=== PATIENT | female | born 1995 | race Hispanic/Latino ===

== ENCOUNTER 2021-05-19 00:02 | Inpatient (IN) | payer OTHER ==
[~2021-05-19] VITALS: Ht 165.1 cm; Wt 101.2 kg
--- NOTE | 2021-05-19 12:30 | PR ---
[facility] [address] [facility] [place], [place] [address] Signed Progress Notes IP Datetime Report Generated by CPN: 05/19/2021 12:30 PROGRESS NOTES: [id number] Impression: Normal Progression of Labor; Reassuring Heart Rate Procedures: Artificial ROM; Sterile Vag Exam Plan: Continue Present Management VITAL SIGNS: [id number] Vital Signs: Reviewed; Within Normal Limits EXAM: [id number] Dilatation: 1.5 Effacement: 50 Station: -2 Contractions: q 1 to 3 min MEMBRANES: [id number] ROM Note: by Yobany FAJARDO Comments: Good change in her cervix with the Cytotec. Sugars are remaining in a good range as well. Will continue. FETUS A: [id number] FHR Baseline: 145 Variability: Moderate 6-25bpm Accelerations: 15X15 Decelerations: Variable FHR Category: Category II Presentation: Vertex Comments on Fetus A: overall reassuring FETUS B: [id number] Signing Physician: Ivet Haywood MD Copies: ~ *Electronically Signed* 05/19/21 1230 IVET HAYWOOD MD PATIENT NAME: ELMA MCGINNIS PROGRESS NOTE DATE OF : [birth year] PHYSICIAN: IVET HAYWOOD MD RPT #: [id number] REPORT IS CONFIDENTIAL AND NOT TO BE RELEASED WITHOUT AUTHORIZATION
--- NOTE | 2021-05-19 21:09 | PR ---
[facility] [address] [facility] [place], [place] [address] Signed Progress Notes IP Datetime Report Generated by CPN: 05/19/2021 21:09 PROGRESS NOTES: [id number] Impression: Reassuring Heart Rate Other Impressions: slow progress Procedures: Intrauterine Pressure Catheter; Scalp Electrode Plan: Augmentation VITAL SIGNS: [id number] Vital Signs: Reviewed; Within Normal Limits EXAM: [id number] Dilatation: 4.5 Effacement: 75 Station: -2 Contractions: q 1 to 3 min MEMBRANES: [id number] ROM Note: by Yobany FAJARDO Comments: Slow progress and I suspect contractions are inadequate. IUPC placed which did document this. Will begin low dose pitocin. Discussed with pt and she is agreeable to this plan. FETUS A: [id number] FHR Baseline: 145 Variability: Moderate 6-25bpm Accelerations: 15X15 Decelerations: Variable FHR Category: Category II Presentation: Vertex Comments on Fetus A: overall reassuring FETUS B: [id number] Signing Physician: Ivet Haywood MD Copies: ~ *Electronically Signed* 05/19/212108 IVET HAYWOOD MD PATIENT NAME: ELMA MCGINNIS PROGRESS NOTE DATE OF : [birth year] PHYSICIAN: IVET HAYWOOD MD RPT #: [id number] REPORT IS CONFIDENTIAL AND NOT TO BE RELEASED WITHOUT AUTHORIZATION
--- NOTE | 2021-05-21 10:52 | PR ---
[facility] [address] [facility] [facility] [place], [place] [address] Signed PP Progress Notes Datetime Report Generated by CPN: 05/21/2021 10:52 SUBJECTIVE: [id number] Pain: Within Normal Limits Nausea/Vomiting: Denies Vital Signs: [id number] Vital Signs: Reviewed; Within Normal Limits Cardiovascular: Not Done Respiratory: Not Done Abdomen/Uterus: Abnormal Lochia: Normal Vulva/Perineum: Not Done Breasts: Not Done CVA Tenderness: Not Done Extremities: Normal Incision: Not Applicable Progress: Normal Exam Comments: Fundus firm, NT @ U-1. H/H 11.5/34, WBC 8.6, plat 246k IMPRESSION/PLAN/PROCEDURES: [id number] Impression: Normal Progression Other Impression: DM Plan: Discharge Procedures: None Progress Notes: Doing well overall. Sugars are improving on the metformin and her diet. I do think she is stable for D/C. Signing Physician: Ivet Haywood MD Copies: ~ *Electronically Signed* 05/21/21 1052 IVET HAYWOOD MD PATIENT NAME: ELMA MCGINNIS PROGRESS NOTE DATE OF : [birth year] PHYSICIAN: IVET HAYWOOD MD RPT #: [id number] REPORT IS CONFIDENTIAL AND NOT TO BE RELEASED WITHOUT AUTHORIZATION
== END 2021-05-21 11:50 | disposition home or self-care (01) | DRG 807 ==
LOC: FBC 00:02
PROVIDERS: ADMIT Obstetrics & Gynecology; ATTEND Obstetrics & Gynecology
PROC: 10E0XZZ Delivery of Products of Conception, External Approach (ICD-10-PCS; principal; 2021-05-19)
PROC: 10907ZC Drainage of Amniotic Fluid, Therapeutic from Products of Conception, Via Natural or Artificial Opening (ICD-10-PCS; 2021-05-19)
PROC: 3E0P7VZ Introduction of Hormone into Female Reproductive, Via Natural or Artificial Opening (ICD-10-PCS; 2021-05-19)
PROC: 00HU33Z Insertion of Infusion Device into Spinal Canal, Percutaneous Approach (ICD-10-PCS; 2021-05-19)
PROC: 3E0R3BZ Introduction of Anesthetic Agent into Spinal Canal, Percutaneous Approach (ICD-10-PCS; 2021-05-19)
DX: O24.429 Gestational diabetes mellitus in childbirth, unspecified control (principal); Z37.0 Single live birth; O99.824 Streptococcus B carrier state complicating childbirth; Z3A.37 37 weeks gestation of pregnancy; Z67.40 Type O blood, Rh positive; Z20.822 Contact with and (suspected) exposure to COVID-19
CPT/HCPCS: 01960; 85027; A9270; C9803; J1815; J2540; J2590; J2795; J3010; J7030; J7042; U0003